=== PATIENT | male | born 1985 | race Caucasian/White ===

== ENCOUNTER 2023-07-20 18:52 | Emergency (ER) | payer MEDICAID ==
[~2023-07-20] VITALS: Ht 175.3 cm; Wt 49.9 kg
[2023-07-20 19:07] VITALS: BP 123/84; PULSE 117; RESP 19; TEMP 97.9; O2SAT 99
== END 2023-07-20 20:13 | disposition left against medical advice (07) ==
LOC: MED 18:52
DX: R07.9 Chest pain, unspecified (principal); Z53.21 Procedure and treatment not carried out due to patient leaving prior to being seen by health care provider
CPT/HCPCS: 82948; 93005; 99281